=== PATIENT | female | born 1965 | race Caucasian/White ===

== ENCOUNTER → 2016-07-30 | Outpatient (CLI) | payer SELFPAY ==
--- NOTE | 2016-07-30 11:53 | CR ---
EXAMINATION: Pelvis and bilateral hips HISTORY: Pain COMPARISON: CT dated 04/21/2015 TECHNIQUE: AP pelvis and 2 views of the hips bilaterally FINDINGS: No acute osseous abnormality, dislocation, or fracture identified. Bone mineralization and joint spaces appear normal. Mild subchondral sclerosis within the acetabula. The SI joints are symm etric. Bone mineralization is normal. IMPRESSION: Mild degenerative changes within the hips bilaterally otherwise unremarkable pelvis and hips.
== END ==
LOC: MW.CHORTHO 07:36
PROVIDERS: ATTEND Physician Assistant
DX: M25.551 Pain in right hip (principal); M25.552 Pain in left hip
CPT/HCPCS: 73521; 73521-26

== ENCOUNTER 2019-12-28 06:51 | Day surgery (SDC) | payer MEDICAID ==
[2019-12-25 13:55] LABS: BLOOD UREA NITROGEN,BUN 13 mg/dL (7.0-18.0); CARBON DIOXIDE,CO2 24.5 mmol/L (21.0-32.0); CHLORIDE,CL 108 mmol/L (98-107); GLUCOSE RANDOM 99 mg/dL (74-106); POTASSIUM,K 3.6 mmol/L (3.5-5.1); SODIUM,NA 142 mmol/L (136-145)
[~2019-12-28 06:51] MED LIST: Sodium Chloride 0.9% 10 ML SDV IV PRN; Sodium Chloride 0.9% 10 ML Syringe FLUSH PRN; ceFAZolin 2 GM in Premix Bag 1 BAG IV ONE
[2019-12-28] MEDS ORDERED: Fluorescein 5 ML Vial ONE (07:13)
[2019-12-28] MEDS: Lactated Ringers 1,000 ML IV SCH ×2 (07:15→18:53)
[2019-12-28] MEDS ORDERED: Propofol 200 MG/20 ML SDV ONE (07:19)
[2019-12-28] MEDS ORDERED: fentaNYL 250 MCG/5 ML SDV ONE (07:19)
[2019-12-28] MEDS ORDERED: Midazolam 1 MG/ML 2 ML SDV ONE (07:19)
[2019-12-28] MEDS ORDERED: Glycopyrrolate 0.2 MG/ML SDV ONE (07:21)
[2019-12-28] MEDS ORDERED: Rocuronium Bromide 50 MG/5 ML Syringe ONE (07:21)
[2019-12-28] MEDS ORDERED: Lidocaine 2% 5 ML SDV ONE (07:21)
[2019-12-28] MEDS ORDERED: Ketorolac 30 MG/ML SDV ONE (07:21)
[2019-12-28] MEDS ORDERED: Ondansetron 4 MG/2 ML SDV ONE (07:21)
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
[2019-12-28] MEDS ORDERED: Acetaminophen 1,000 MG in Premix Bag 1 BAG IV PRN (07:38)
[2019-12-28] MEDS ORDERED: Ketorolac 30 MG/ML SDV IVPUSH ONE ×3 (07:38→11:00)
[2019-12-28] MEDS ORDERED: Sodium Chloride 0.9% 20 ML ONE (07:45)
[2019-12-28] MEDS ORDERED: ceFAZolin 1 GM Vial ONE (07:45)
[2019-12-28] MEDS ORDERED: Morphine 4 MG/ML Syringe IVPUSH PRN (09:07)
[2019-12-28] MEDS ORDERED: Ondansetron 4 MG/2 ML SDV IVPUSH PRN (09:07)
[2019-12-28] MEDS ORDERED: Promethazine 25 MG/ML SDV IM PRN (09:07)
[2019-12-28] MEDS ORDERED: Acetaminophen/oxyCODONE 325-5 MG Tab PO PRN ×2 (09:07)
--- NOTE | 2019-12-28 09:12 | PCM.OPNOTE ---
- General Post-Op/Procedure Note Date of Surgery/Procedure: 12/28/19 Operative Procedure(s): TVH,BSO,Solynx TVT and cystoscopy. Post-Op Diagnosis: Same Anesthesia Technique: General ET Tube Primary Surgeon: Adam Ferguson EBL in mLs: 100 Complications: None Condition: Good
[2019-12-28] MEDS ORDERED: HYDROmorphone 2 MG/ML Syringe IVPUSH PRN (09:15)
[2019-12-28] MEDS: fentaNYL 100 MCG/2 ML SDV IVPUSH PRN ×2 (09:18→09:22)
[2019-12-28] MEDS ORDERED: Midazolam 1 MG/ML 2 ML SDV IVPUSH ONE (09:22)
[2019-12-28] MEDS ORDERED: Furosemide 40 MG/4 ML VIAL ONE (09:27)
--- NOTE | 2019-12-28 09:39 | PCM.SN.2 ---
- Free Text/Narrative Note: Called to PACU to evaluate pt with severe pain. Pt has received Fentanyl 100mcg IV, Tylenol 1000mg IV, Toradol 30mg IV (intra-op), versed 2mg IV. Pt alternates between severe pain with tachypnea and asleep state with hypoventilation. Pt is exhibiting significant pain sedation mismatch. Pt will need continuous cent rally monitored SpO2 and EtCO2 monitoring post-operatively.
--- NOTE | 2019-12-28 10:14 | PCM.POSTAN ---
POST ANESTHESIA ASSESSMENT - MENTAL STATUS Mental Status: Alert, Oriented - VITAL SIGNS Vital Signs: Last Vital Signs Temp 37.0 C 12/28/19 09:11 Pulse 62 12/28/19 10:05 Resp 22 H 12/28/19 10:05 BP 129/71 12/28/19 10:05 Pulse Ox 100 12/28/19 10:05 - RESPIRATORY Respiratory Status: Respiratory Rate WNL, Airway Patent, O2 Saturation Stable - CARDIOVASCULAR CV Status: Pulse Rate WNL, Blood Pressure Stable - GASTROINTESTINAL GI Status: No Symptoms - PAIN Pain Score: 6 - POST OP HYDRATION Hydration Status: Adequate & Stable - OBSERVATIONS Free Text/Narrative:: No anesthesia problems
[2019-12-28] MEDS: HYDROmorphone 1 MG/ML Syringe IVPUSH PRN ×2 (15:18→19:28)
[2019-12-28] MEDS: Sodium Chloride 0.9% 2.5 ML Syringe FLUSH PRN ×2 (15:19→15:20)
--- NOTE | 2019-12-28 15:44 | OR ---
SURGEON: Adam Ferguson MD DATE OF PROCEDURE: 12/28/2019 PREOPERATIVE DIAGNOSES: Stress urinary incontinence, prolapsed uterus. POSTOPERATIVE DIAGNOSES: Stress urinary incontinence, prolapsed uterus. OPERATIONS PERFORMED: Total vaginal hysterectomy, bilateral vaginal salpingo-oophorectomy, tension- free Solyx TVT, and cystoscopy. 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 ANESTHESIA: General endotracheal intubation, Dr. Gould and Orlin Trevizo. ESTIMATED BLOOD LOSS: 100 mL. COMPLICATIONS: None. FINDINGS: Uterus is about 8-week size, +2 to +3 prolapse of the uterus. The posterior wall is reasonably supported and the anterior wall is reasonably supported with the abnormal urethrovesical angle causing stress urinary incontinence. PROCEDURE IN DETAIL: The patient was brought to the OR, properly identified. After adequate level of anesthesia, the patient was placed in lithotomy position, prepped and draped in sterile fashion as usual. A short weighted speculum placed in the vagina and straight catheter used to empty the bladder and then single-tooth tenaculum applied to the cervix. Using electrocautery, circular incision in the vaginal mucosa around the cervix done. The posterior cul-de-sac was entered posteriorly and the short weighted speculum replaced with extending long weighted speculum. The uterosacral ligament from both sides clamped with a curved Zeppelin, transected, and suture ligated with 2-0 Vicryl pop-off. The same thing was done with the cardinal ligament. Then, the cervicovesical space was incised with the Metzenbaum and the bladder retracted completely away from the operative field and the anterior cul-de-sac entered. The broad ligament was clamped with a curved Zeppelin from both sides, transected, and suture ligated with 2-0 Vicryl pop-off. The uterine vessel suture ligated at this step and then the round ligaments clamped with a curved Zeppelin from both sides, transected, and suture ligated with 2-0 Vicryl pop-off. Then, the uterus was delivered posteriorly and the superior pedicle was taken with 90-degree Zeppelin on both sides. The ovary was included with the specimen. The tubes were already removed and then the superior pedicle first tied with the Endoloop and then a free tie on both sides. Inspection of the operative field showed no oozing, no bleeding, and we proceeded to close the vaginal cuff with 2-0 Vicryl interrupted [id number] sutures. After that, assessing the vaginal wall, it was felt to be there was no need to have anterior or posterior repair because the vagina was reasonably supported, so we proceeded with the TVT and the mucosa of the vagina beneath the umbilicus inflated with copious amount of normal saline and dissected laterally in a tunneling fashion making room for the Solyx TVT. The Solyx TVT placed in place with due amount of tension to elevate the urethrovesical angle and then the anterior vaginal cuff incision was closed with 2-0 Vicryl interrupted sutures. While we were doing that, we asked the Anesthesia people to give the patient fluorescein and then cystoscopy was performed. The bladder was intact. Both ureteric orifice was seen with the dye coming from both of them. The patency of both ureters verified. Satisfied with these findings. Instrument and sponge count was correct. The patient tolerated the procedure well, went to recovery room in stable general condition. DORITA / MADELYN /[id number]
[2019-12-28] MEDS: Ketorolac 30 MG/ML SDV IVPUSH PRN ×2 (17:05→23:16)
[2019-12-29] MEDS: HYDROmorphone 1 MG/ML Syringe IVPUSH PRN (02:28)
[2019-12-29] MEDS: Sodium Chloride 0.9% 2.5 ML Syringe FLUSH PRN (02:36)
[2019-12-29] MEDS: Lactated Ringers 1,000 ML IV SCH (02:37)
[2019-12-29] MEDS: Ketorolac 30 MG/ML SDV IVPUSH PRN (05:46)
[2019-12-29 06:46] LABS: BLOOD UREA NITROGEN,BUN 8 mg/dL (7.0-18.0); CARBON DIOXIDE,CO2 30.6 mmol/L (21.0-32.0); CHLORIDE,CL 106 mmol/L (98-107); GLUCOSE RANDOM 111 mg/dL (74-106); POTASSIUM,K 3.8 mmol/L (3.5-5.1); SODIUM,NA 143 mmol/L (136-145)
[2019-12-29] MEDS ORDERED: FLU Vacc QS2020-21 36MOS UP/PF 60 MCG/0.5 ML Syringe IM ONE (09:00)
--- NOTE | 2019-12-29 10:09 | PCM48HPAN ---
Post Anesthesia Note - EVALUATION WITHIN 48HRS OF ANESTHETIC Vital Signs in Normal Range: Yes Patient Participated in Evaluation: Yes Respiratory Function Stable: Yes Airway Patent: Yes Cardiovascular Function Stable: Yes Hydration Status Stable: Yes Pain Control Satisfactory: Yes (Reports satisfactory pain control, pain 4/10) Nausea and Vomiting Control Satisfactory: Yes Mental Status Recovered: Yes Vital Signs: Last Vital Signs Temp 36.9 C 12/29/19 03:00 Pulse 60 12/29/19 03:00 Resp 14 12/29/19 03:00 BP 90/58 L 12/29/19 03:00 Pulse Ox 99 12/29/19 03:00 - COMMENTS/OBSERVATIONS Free Text/Narrative:: Has been ambulating well
[2019-12-29] MEDS ORDERED: Acetaminophen/HYDROcodone 325-5 MG Tab PO PRN (10:13)
[2019-12-29] MEDS ORDERED: SUMAtriptan 50 MG Tab ONE (10:41)
--- NOTE | 2019-12-29 10:42 | PCM.SURGPN ---
- General Info Date of Service: 12/29/19 POD#: 1 Functional Status: Reports: Pain Controlled - Review of Systems General: Reports: No Symptoms HEENT: Reports: No Symptoms Pulmonary: Reports: No Symptoms Cardiovascular: Reports: No Symptoms Gastrointestinal: Reports: No Symptoms Genitourinary: Reports: No Symptoms Musculoskeletal: Reports: No Symptoms Skin: Reports: No Symptoms Neurological: Reports: No Symptoms Psychiatric: Reports: No Symptoms - Patient Data Vitals - Most Recent: Last Vital Signs Temp 36.9 C 12/29/19 03:00 Pulse 60 12/29/19 03:00 Resp 14 12/29/19 03:00 BP 90/58 L 12/29/19 03:00 Pulse Ox 99 12/29/19 03:00 Weight - Most Recent: 60.781 kg I&O - Last 24 Hours: Intake & Output 12/28/19 12/29/19 12/29/19 22:59 06:59 14:59 Intake Total 360 2405 Output Total 800 2000 Balance -440 405 Lab Results Last 24 Hrs: Laboratory Results - last 24 hr 12/29/19 12/29/19 Range/Units 05:52 05:52 WBC 8.76 (4.0-11.0) K/uL RBC 3.34 L (4.30-5.90) M/uL Hgb 10.3 L (12.0-16.0) g/dL Hct 32.2 L (36.0-46.0) % MCV 96.4 (80.0-98.0) fL MCH 30.8 (27.0-32.0) pg MCHC 32.0 (31.0-37.0) g/dL RDW Std Deviation 52.2 (28.0-62.0) fl RDW Coeff of Segundo 15 (11.0-15.0) % Plt Count 187 (150-400) K/uL MPV 10.90 (7.40-12.00) fL Neut % (Auto) 57.0 (48.0-80.0) % Lymph % (Auto) 35.0 (16.0-40.0) % Elk % (Auto) 6.8 (0.0-15.0) % Eos % (Auto) 0.9 (0.0-7.0) % Baso % (Auto) 0.3 (0.0-1.5) % Neut # (Auto) 5.0 (1.4-5.7) K/uL Lymph # (Auto) 3.1 H (0.6-2.4) K/uL Elk # (Auto) 0.6 (0.0-0.8) K/uL Eos # (Auto) 0.1 (0.0-0.7) K/uL Baso # (Auto) 0.0 (0.0-0.1) K/uL Nucleated RBC % 0.0 /100WBC Nucleated RBCs # 0 K/uL Sodium 143 (136-145) mmol/L Potassium 3.8 (3.5-5.1) mmol/L Chloride 106 (98-107) mmol/L Carbon Dioxide 30.6 (21.0-32.0) mmol/L BUN 8 (7.0-18.0) mg/dL Creatinine 0.7 (0.6-1.0) mg/dL Est Cr Clr Drug Dosing 78.41 mL/min Estimated GFR (MDRD) > 60.0 ml/min Glucose 111 H (74-106) mg/dL Calcium 8.5 (8.5-10.1) mg/dL Med Orders - Current: Current Medications Hydrocodone Bitart/Acetaminophen (Goessel 325-5 Mg) 1 - 2 tab PO Q4H PRN PRN Reason: pain Last Admin: 12/29/19 10:33 Dose: 2 tab Documented by: Hydromorphone HCl (Dilaudid) 1 mg IVPUSH Q4H PRN PRN Reason: Pain Last Admin: 12/29/19 02:28 Dose: 1 mg Documented by: Lactated Ringer's (Ringers, Lactated) 1,000 mls @ 125 mls/hr IV ASDIRECTED VIV Last Admin: 12/29/19 02:37 Dose: 125 mls/hr Documented by: Ketorolac Tromethamine (Toradol) 30 mg IVPUSH Q6H PRN PRN Reason: Pain (severe 7-10) Stop: 01/02/20 09:07 Last Admin: 12/29/19 05:46 Dose: 30 mg Documented by: Ondansetron HCl (Zofran) 4 mg IVPUSH Q6H PRN PRN Reason: Nausea/Vomiting Oxycodone/Acetaminophen (Percocet 325-5 Mg) 1 tab PO Q4H PRN PRN Reason: Pain (moderate 4-6) Last Admin: 12/28/19 13:32 Dose: 1 tab Documented by: Oxycodone/Acetaminophen (Percocet 325-5 Mg) 2 tab PO Q4H PRN PRN Reason: Pain (moderate 4-6) Promethazine HCl (Phenergan) 25 mg IM Q6H PRN PRN Reason: Nausea/Vomiting Sodium Chloride (Saline Flush) 10 ml FLUSH ASDIRECTED PRN PRN Reason: Keep Vein Open Sodium Chloride (Saline Flush) 2.5 ml FLUSH ASDIRECTED PRN PRN Reason: Keep Vein Open Last Admin: 12/29/19 02:36 Dose: 2.5 ml Documented by: Sodium Chloride (Normal Saline) 10 ml IV ASDIRECTED PRN PRN Reason: IV Use Sumatriptan Succinate (Imitrex) 100 mg PO ONETIME ONE Stop: 12/29/19 10:46 Discontinued Medications Cefazolin Sodium (Ancef) Confirm Administered Dose 2 gm .ROUTE .STK-MED ONE Stop: 12/28/19 07:46 Fentanyl (Sublimaze) Confirm Administered Dose 250 mcg .ROUTE .STK-MED ONE Stop: 12/28/19 07:20 Fentanyl (Sublimaze) 50 - 100 mcg IVPUSH Q5M PRN PRN Reason: Pain (severe 7-10) Last Admin: 12/28/19 09:22 Dose: 50 mcg Documented by: Fluorescein Sodium (Ak-Fluor) Confirm Administered Dose 5 ml .ROUTE .STK-MED ONE Stop: 12/28/19 07:14 Furosemide (Lasix) Confirm Administered Dose 40 mg .ROUTE .STK-MED ONE Stop: 12/28/19 09:28 Glycopyrrolate (Robinul) Confirm Administered Dose 1 mg .ROUTE .STK-MED ONE Stop: 12/28/19 07:22 Hydromorphone HCl (Dilaudid) 1 - 2 mg IVPUSH ONETIME PRN PRN Reason: Pain Last Admin: 12/28/19 09:56 Dose: 1 mg Documented by: Cefazolin Sodium/Dextrose 2 gm (/ Premix) 50 mls @ 100 mls/hr IV ONETIME ONE Stop: 12/25/19 09:48 Acetaminophen 1,000 mg/ Premix 100 mls @ 400 mls/hr IV Q6H PRN PRN Reason: Pain Last Admin: 12/28/19 09:19 Dose: 400 mls/hr Documented by: Sodium Chloride (Normal Saline) Confirm Administered Dose 20 mls @ as directed .ROUTE .STK-MED ONE Stop: 12/28/19 07:46 Influenza Virus Vaccine (Pharmacy To Dose - Influenza Vaccine) 1 each IM ONETIME ONE Stop: 12/28/19 19:00 Influenza Virus Vaccine (Afluria Quad 2019- (3yr Up)) 60 mcg IM .ONCE ONE Stop: 12/29/19 09:01 Ketorolac Tromethamine (Toradol) Confirm Administered Dose 30 mg .ROUTE .STK-MED ONE Stop: 12/28/19 07:22 Ketorolac Tromethamine (Toradol) 30 mg IVPUSH Q6H ONE Stop: 12/28/19 07:39 Last Admin: 12/28/19 11:41 Dose: Not Given Documented by: Ketorolac Tromethamine (Toradol) 30 mg IVPUSH ONETIME ONE Stop: 12/28/19 09:08 Last Admin: 12/28/19 10:32 Dose: 30 mg Documented by: Ketorolac Tromethamine (Toradol) 30 mg IVPUSH ONETIME ONE Stop: 12/28/19 11:01 Last Admin: 12/28/19 11:41 Dose: Not Given Documented by: Lidocaine (Xylocaine-Mpf 2%) Confirm Administered Dose 5 ml .ROUTE .STK-MED ONE Stop: 12/28/19 07:22 Midazolam HCl (Versed 1 Mg/Ml) Confirm Administered Dose 2 mg .ROUTE .STK-MED ONE Stop: 12/28/19 07:20 Midazolam HCl (Versed 1 Mg/Ml) 2 mg IVPUSH ONETIME ONE Stop: 12/28/19 09:23 Last Admin: 12/28/19 09:28 Dose: 2 mg Documented by: Morphine Sulfate (Morphine) 4 mg IVPUSH Q2H PRN PRN Reason: Pain (severe 7-10) Ondansetron HCl (Zofran) Confirm Administered Dose 4 mg .ROUTE .STK-MED ONE Stop: 12/28/19 07:22 Propofol (Diprivan 20 Ml) Confirm Administered Dose 200 mg .ROUTE .STK-MED ONE Stop: 12/28/19 07:20 Rocuronium [place] (Rocuronium [place]) Confirm Administered Dose 50 mg .ROUTE .STK-MED ONE Stop: 12/28/19 07:22 - Exam Wound/Incisions: Healing Well General: Alert, Oriented HEENT: Pupils Equal Neck: Supple Lungs: Clear to Auscultation, Normal Respiratory Effort Cardiovascular: Regular Rate, Regular Rhythm GI/Abdominal Exam: Normal Bowel Sounds, Soft, Non-Tender, No Organomegaly, No Distention, No Abnormal Bruit, No Mass, Pelvis Stable Extremities: Normal Inspection, Normal Range of Motion, Non-Tender, No Pedal Edema, Normal Capillary Refill Skin: Warm, Dry, Intact Neurological: No New Focal Deficit Psy/Mental Status: Alert, Normal Affect, Normal Mood Sepsis Event Note - Evaluation Sepsis Screening Result: No Definite Risk - Focused Exam Vital Signs: Vital Signs Temp Pulse Resp BP Pulse Ox 12/29/19 03:00 36.9 C 60 14 90/58 L 99 12/28/19 23:21 37.2 C 60 16 95/62 100 - Problem List Review Problem List Initiated/Reviewed/Updated: Yes - My Orders Last 24 Hours: Active Orders 24 hr Category Date Time Status Influenza Vaccine Charge [RC] .DISCHARGE Care 12/28/19 19:00 Active Urinary Catheter Assessment [RC] ASDIRECTED Care 12/29/19 10:28 Active Urinary Catheter Insertion [Insert Urinary Catheter] [ Care 12/29/19 10:30 Ordered OM.PC] Q24H Regular Diet [DIET] Diet 12/28/19 Lunch Active Acetaminophen/HYDROcodone [Goessel 325-5 MG] Med 12/29/19 10:13 Active 1 - 2 tab PO Q4H PRN HYDROmorphone [Dilaudid] Med 12/28/19 15:11 Active 1 mg IVPUSH Q4H PRN SUMAtriptan [Imitrex] Med 12/29/19 10:45 Once 100 mg PO ONETIME ONE Medication Orders Hydrocodone Bitart/Acetaminophen (Goessel 325-5 Mg) 1 - 2 tab PO Q4H PRN PRN Reason: pain Last Admin: 12/29/19 10:33 Dose: 2 tab Documented by: LACHO Hydromorphone HCl (Dilaudid) 1 mg IVPUSH Q4H PRN PRN Reason: Pain Last Admin: 12/29/19 02:28 Dose: 1 mg Documented by: Admin: 12/28/19 19:28 Dose: 1 mg Documented by: Admin: 12/28/19 15:18 Dose: 1 mg Documented by: LAWRENCE Lactated Ringer's (Ringers, Lactated) 1,000 mls @ 125 mls/hr IV ASDIRECTED VIV Last Admin: 12/29/19 02:37 Dose: 125 mls/hr Documented by: Infusion: 12/29/19 02:37 Dose: 125 mls/hr Documented by: Admin: 12/28/19 18:53 Dose: 125 mls/hr Documented by: Infusion: 12/28/19 15:15 Dose: 125 mls/hr Documented by: Admin: 12/28/19 07:15 Dose: 125 mls/hr Documented by: KG Ketorolac Tromethamine (Toradol) 30 mg IVPUSH Q6H PRN PRN Reason: Pain (severe 7-10) Stop: 01/02/20 09:07 Last Admin: 12/29/19 05:46 Dose: 30 mg Documented by: Admin: 12/28/19 23:16 Dose: 30 mg Documented by: Admin: 12/28/19 17:05 Dose: 30 mg Documented by: LACHO Ondansetron HCl (Zofran) 4 mg IVPUSH Q6H PRN PRN Reason: Nausea/Vomiting Oxycodone/Acetaminophen (Percocet 325-5 Mg) 1 tab PO Q4H PRN PRN Reason: Pain (moderate 4-6) Last Admin: 12/28/19 13:32 Dose: 1 tab Documented by: LACHO Oxycodone/Acetaminophen (Percocet 325-5 Mg) 2 tab PO Q4H PRN PRN Reason: Pain (moderate 4-6) Promethazine HCl (Phenergan) 25 mg IM Q6H PRN PRN Reason: Nausea/Vomiting Sodium Chloride (Saline Flush) 10 ml FLUSH ASDIRECTED PRN PRN Reason: Keep Vein Open Sodium Chloride (Saline Flush) 2.5 ml FLUSH ASDIRECTED PRN PRN Reason: Keep Vein Open Last Admin: 10/16/20 02:36 Dose: 2.5 ml Documented by: Admin: 12/28/19 15:20 Dose: 2.5 ml Documented by: Admin: 12/28/19 15:19 Dose: 2.5 ml Documented by: LAWRENCE Sodium Chloride (Normal Saline) 10 ml IV ASDIRECTED PRN PRN Reason: IV Use Sumatriptan Succinate (Imitrex) 100 mg PO ONETIME ONE Stop: 12/29/19 10:46 - Assessment Assessment (Free Text/Narrative):: Status post total vaginal hysterectomy TVT postoperative day #1 the patient is doing well she have an issue with voiding I am claudio sent her home with the Godinez catheter to be removed in the office - Plan Plan (Free Text/Narrative):: Planning to center on the postvasectomy instruction is given prescription for Narco 5/325 for postoperative pain is. Given to the patient we are sending her home with a Godinez catheter because the patient have an issue with voiding and we gave her instruction how to take care of her Godinez catheter. There is no restriction on her diet the patient have a follow-up appointment in the office in one week and at that time we will DC the Godinez catheter
[2019-12-29] MEDS ORDERED: SUMAtriptan 50 MG Tab PO ONE (10:45)
[2019-12-29 11:10] VITALS: BP 96/56; PULSE 86
[2019-12-29] MEDS ORDERED: FLU VACC QS2020-21(6MOS UP)/PF 60 MCG/0.5 ML SYRINGE IM ONE (11:10)
== END 2019-12-29 11:25 | disposition home or self-care (01) ==
LOC: MW.SDS 06:51 → MW.MS 10:22 → MW.SDS 12-29 11:25
PROVIDERS: ATTEND Obstetrics & Gynecology
DX: D21.9 Benign neoplasm of connective and other soft tissue, unspecified (principal); N39.3 Stress incontinence (female) (male); N81.4 Uterovaginal prolapse, unspecified; J45.909 Unspecified asthma, uncomplicated; Z88.0 Allergy status to penicillin; Z88.5 Allergy status to narcotic agent; Z79.899 Other long term (current) drug therapy; Z98.890 Other specified postprocedural states; Z88.8 Allergy status to other drugs, medicaments and biological substances; F32.9 Major depressive disorder, single episode, unspecified; Z90.49 Acquired absence of other specified parts of digestive tract
CPT/HCPCS: 36415; 51702; 57288; 58262; 80048; 84703; 85025; 85027; 86850; 86900; 86901; 87635; 88309; 90471; 90686; A9270; J0131; J0690; J1170; J1885; J1940; J2001; J2250; J2704; J3010; J3490; J7120; G0008; J2405; U0002

== ENCOUNTER 2019-12-30 18:04 | Observation (INO) | payer MEDICAID, OTHER ==
[2019-12-30] MEDS ORDERED: Sodium Chloride 0.9% 1,000 ML IV ONE ×2 (19:15→23:13)
[2019-12-30] MEDS ORDERED: Acetaminophen/HYDROcodone 325-5 MG Tab PO ONE (19:35)
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
[2019-12-30 20:10] LABS: BLOOD UREA NITROGEN,BUN 8 mg/dL (7.0-18.0); CARBON DIOXIDE,CO2 27.7 mmol/L (21.0-32.0); CHLORIDE,CL 103 mmol/L (98-107); GLUCOSE RANDOM 127 mg/dL (74-106); POTASSIUM,K 3.5 mmol/L (3.5-5.1); SODIUM,NA 138 mmol/L (136-145)
[2019-12-30] MEDS ORDERED: Iopamidol 755 Mg/ML 100 ML Bottle IVPUSH STA (20:46)
--- NOTE | 2019-12-30 21:22 | CT ---
Indication: Recent hysterectomy bladder taping pain Technique: Contrast-enhanced CT abdomen and pelvis 80 mL Isovue 370 Comparison: CT studies in 2016 Findings: Heart size is normal lung bases are clear. Cholecystectomy intra and extrahepatic biliary dilatation. Pancreas adrenal glands are unremarkable spleen is unremarkable normal caliber abdominal aorta symmetric enhancement both kidneys no hydronephrosis Normal appendix. Hysterectomy. Godinez in decompressed urinary bladder. There is mild soft tissue stranding in the pelvis. Small amount of fluid in the pelvis. No abscess or organized fluid collection seen. Diverticulosis. Bowel is unremarkable. No obstruction. No suspicious bony lesions. Impression: 1. No acute findings in abdomen or pelvis. 2. Hysterectomy. Urinary bladder decompressed with Godinez. Mild inflammatory change in the pelvis and fluid in the pelvis likely post surgical. No abscess or organized fluid collections. Please note that all CT scans at this facility use dose modulation, iterative reconstruction, and/or weight-based dosing when appropriate to reduce radiation dose to as low as reasonably achievable. Dictated by Zee Gonzalez MD @ Dec 30 2019 9:09PM Signed by Dr. Zee Gonzalez @ Dec 30 2019 9:20PM
[2019-12-30 21:33] LABS: ACETAMINOPHEN < 2.0 ug/mL
[2019-12-30] MEDS ORDERED: Ondansetron 4 MG/2 ML SDV IVPUSH PRN (23:39)
[2019-12-30] MEDS ORDERED: Albuterol/Ipratropium 3.0-0.5 MG/3 ML Neb Soln NEB PRN (23:39)
[2019-12-31] MEDS ORDERED: Acetaminophen/HYDROcodone 108-2.5 MG/5 ML Soln 15 ML UD Cup PO PRN (00:08)
[2019-12-31] MEDS: Acetaminophen/HYDROcodone 108-2.5 MG/5 ML Soln 15 ML UD Cup PO PRN ×2 (00:33→04:31)
[2019-12-31] MEDS: Lactated Ringers 1,000 ML IV SCH ×3 (01:14→16:41)
[2019-12-31] MEDS: Bisacodyl 5 MG Tab PO PRN ×2 (01:20→21:24)
--- NOTE | 2019-12-31 01:20 | PCM.SN.2 ---
- Free Text/Narrative Note: Patient was signed out to me by THANH Anderson pending CT abdomen pelvis and further evaluation. HPI: Is a 54-year-old woman who was signed out to me pending further work-up and CT abdomen pelvis. Per the patient she had a vaginal hysterectomy and bladder sling done by Dr. Ferguson approximately 2 days ago. She states that she comes to the emergency department today because she is having sharp pain near her suprapubic area. She denies any dysuria or hematuria. She denies any wound changes. She denies any fever or chills. She states that she took [place] at home states the pain is still there. She denies any other symptoms. Labs are reviewed at signout which did reveal a normocytic anemia with a hemoglobin of 11.3 and hematocrit of 35.6 otherwise unremarkable. CMP reveals a transaminitis with an AST of 1052 and an ALT of 1123 with an elevated alkaline phosphatase of 195 otherwise unremarkable. Urinalysis revealed microscopic hematuria. Discussion with THANH we did obtain Tylenol levels in addition coagulation studies, lactate given the transaminitis and a recent use of [place]. I did have a discussion with the patient and she did not take more than prescribed. She does have the bottle and presents with her which does not reveal any missing tablets. She states that she did take 1 Tylenol night before last but has not taken any additional Tylenol since that time. We also sent a hepatitis panel. Coags are within normal limits, lactic acid was normal. Serum Tylenol was negative. After labs I did discuss with patient regarding admission. She was amenable to this plan. I did contact Dr. Garcia who accepted the admission. The patient will be admitted for observation. At the time of my reevaluation the patient had controlled pain at this time. I did order her her scheduled home dose of pain medication. DISPOSITION: Patient was admitted to medical/surgical floor in stable condition CONDITION: Fair PROCEDURES: None FINAL IMPRESSION(S)/DIAGNOSES: 1. Acute transaminitis, unknown etiology Neville Boucher M.D.
[2019-12-31] MEDS: Ketorolac 30 MG/ML SDV IVPUSH PRN ×4 (01:32→21:24)
[2019-12-31 05:53] LABS: BLOOD UREA NITROGEN,BUN 5 mg/dL (7.0-18.0); CARBON DIOXIDE,CO2 27.2 mmol/L (21.0-32.0); CHLORIDE,CL 107 mmol/L (98-107); GLUCOSE RANDOM 101 mg/dL (74-106); POTASSIUM,K 3.5 mmol/L (3.5-5.1); SODIUM,NA 142 mmol/L (136-145)
[2019-12-31] MEDS: Pantoprazole 40 MG in Sodium Chloride 0.9% 10 ML IV SCH (08:43)
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
[2019-12-31] MEDS ORDERED: SUMAtriptan 50 MG Tab PO PRN ×2 (12:34→12:55)
--- NOTE | 2019-12-31 14:15 | US ---
INDICATION : TRANSAMINITIS. CT yesterday was negative for acute disease TECHNIQUE: Abdominal limited ultrasound Comparison : Yesterday`s CT. FINDINGS: Pancreas where seen is normal. Abdominal aorta is normal in caliber. The intrahepatic biliary dilatation seen on yesterday`s CT is less evident by ultrasound. The common bile duct dilatation on yesterday`s CT approaches borderline moderate and is not appreciated today`s ultrasound images. Common hepatic duct measures 4.4 mm which is normal. Right kidney measures 10.6 cm is negative for hydronephrosis. Gallbladder surgically absent. No focal mass in the liver. The abdominal inferior vein cava proximally is moderate in diameter and is patent with flow in the appropriate direction. Remainder negative. IMPRESSION: 1. Cholecystectomy. The borderline moderate intrahepatic and extrahepatic biliary dilatation seen on yesterday`s CT is less evident by ultrasound it likely related to differences in technique. 2. Aside from the intrahepatic biliary dilatation, the liver was otherwise normal without mass. 3. No other significant abnormalities in the abdomen. Dictated by Fletcher Lozada MD @ Dec 31 2019 2:09PM Signed by Dr. Fletcher Lozada @ Dec 31 2019 2:14PM
[2020-01-01] MEDS: Lactated Ringers 1,000 ML IV SCH ×4 (00:05→23:36)
[2020-01-01] MEDS ORDERED: traMADol 50 MG Tab PO ONE (01:03)
[2020-01-01] MEDS: Ketorolac 30 MG/ML SDV IVPUSH PRN ×3 (04:06→23:32)
[2020-01-01 05:52] LABS: BLOOD UREA NITROGEN,BUN 5 mg/dL (7.0-18.0); CARBON DIOXIDE,CO2 29.3 mmol/L (21.0-32.0); CHLORIDE,CL 107 mmol/L (98-107); GLUCOSE RANDOM 109 mg/dL (74-106); POTASSIUM,K 4.2 mmol/L (3.5-5.1); SODIUM,NA 143 mmol/L (136-145)
[2020-01-01 08:31] LABS: LIPASE 94 U/L (73-393)
[2020-01-01] MEDS: Pantoprazole 40 MG in Sodium Chloride 0.9% 10 ML IV SCH (08:54)
--- NOTE | 2020-01-01 09:04 | PCM.PN ---
- General Info Date of Service: 01/01/20 Admission Dx/Problem (Free Text): Admission Diagnosis/Problem Admission Diagnosis/Problem Transaminitis, post operative pain Subjective Update: Reports abdominal pain, all over sharp in nature . No chest pain or SOB. No fevers or chills. Having intermittent flushing/hot flashes. Feels nauseate and having some pain with eating. Passing flatus, no BM since before surgery. Ambulating well in the hallways. Functional Status: Reports: Ambulating. Denies: Tolerating Diet - Review of Systems General: Reports: Fatigue. Denies: Malaise HEENT: Reports: Headaches. Denies: Glasses, Visual Changes Pulmonary: Reports: No Symptoms. Denies: Shortness of Breath, Cough, Sputum Cardiovascular: Reports: No Symptoms. Denies: Chest Pain Gastrointestinal: Reports: Abdominal Pain, Constipation, Flatus, Nausea. Denies: Vomiting Genitourinary: Reports: Other (spasms) Musculoskeletal: Reports: No Symptoms Skin: Reports: No Symptoms Neurological: Reports: No Symptoms Psychiatric: Reports: No Symptoms - Patient Data Vitals - Most Recent: Last Vital Signs Temp 98.4 F 01/01/20 07:48 Pulse 68 01/01/20 07:48 Resp 18 01/01/20 07:48 BP 106/74 01/01/20 07:48 Pulse Ox 98 01/01/20 07:48 Weight - Most Recent: 61.643 kg I&O - Last 24 Hours: Intake & Output 12/31/19 01/01/20 01/01/20 22:59 06:59 14:59 Intake Total 2505 2366 Output Total 1850 3250 Balance 655 -884 Lab Results Last 24 Hours: Laboratory Results - last 24 hr 12/31/19 12/31/19 12/31/19 Range/Units 04:45 09: 17:54 WBC (4.0-11.0) K/uL RBC (4.30-5.90) M/uL Hgb (12.0-16.0) g/dL Hct (36.0-46.0) % MCV (80.0-98.0) fL MCH (27.0-32.0) pg MCHC (31.0-37.0) g/dL RDW Std Deviation (28.0-62.0) fl RDW Coeff of Seg[place] (11.0-15.0) % Plt Count (150-400) K/uL MPV (7.40-12.00) fL Neut % (Auto) (48.0-80.0) % Lymph % (Auto) (16.0-40.0) % [place] % (Auto) (0.0-15.0) % Eos % (Auto) (0.0-7.0) % Baso % (Auto) (0.0-1.5) % Neut # (Auto) (1.4-5.7) K/uL Lymph # (Auto) (0.6-2.4) K/uL [place] # (Auto) (0.0-0.8) K/uL Eos # (Auto) (0.0-0.7) K/uL Baso # (Auto) (0.0-0.1) K/uL Nucleated RBC % /100WBC Nucleated RBCs # K/uL Sodium (136-145) mmol/L Potassium (3.5-5.1) mmol/L Chloride (98-107) mmol/L Carbon Dioxide (21.0-32.0) mmol/L BUN (7.0-18.0) mg/dL Creatinine (0.6-1.0) mg/dL Est Cr Clr Drug Dosing mL/min Estimated GFR (MDRD) ml/min Glucose (74-106) mg/dL POC Glucose 108 188 H (60-110) mg/dL Calcium (8.5-10.1) mg/dL Phosphorus (2.6-4.7) mg/dL Magnesium (1.8-2.4) mg/dL Total Bilirubin (0.2-1.0) mg/dL AST (15-37) IU/L ALT (14-63) IU/L Alkaline Phosphatase (46-116) U/L Total Protein (6.4-8.2) g/dL Albumin (3.4-5.0) g/dL Globulin (2.6-4.0) g/dL Albumin/Globulin Ratio (0.9-1.6) Amylase (25-115) U/L Lipase (73-393) U/L Acetaminophen 4.5 ug/mL 01/01/20 01/01/20 01/01/20 Range/Units 05:20 05:20 05:20 WBC 5.42 (4.0-11.0) K/uL RBC 3.30 L (4.30-5.90) M/uL Hgb 10.0 L (12.0-16.0) g/dL Hct 31.9 L (36.0-46.0) % MCV 96.7 (80.0-98.0) fL MCH 30.3 (27.0-32.0) pg MCHC 31.3 (31.0-37.0) g/dL RDW Std Deviation 51.6 (28.0-62.0) fl RDW Coeff of Segundo 14 (11.0-15.0) % Plt Count 178 (150-400) K/uL MPV 10.50 (7.40-12.00) fL Neut % (Auto) 46.3 L (48.0-80.0) % Lymph % (Auto) 37.6 (16.0-40.0) % [place] % (Auto) 5.4 (0.0-15.0) % Eos % (Auto) 10.1 H (0.0-7.0) % Baso % (Auto) 0.6 (0.0-1.5) % Neut # (Auto) 2.5 (1.4-5.7) K/uL Lymph # (Auto) 2.0 (0.6-2.4) K/uL [place] # (Auto) 0.3 (0.0-0.8) K/uL Eos # (Auto) 0.6 (0.0-0.7) K/uL Baso # (Auto) 0.0 (0.0-0.1) K/uL Nucleated RBC % 0.0 /100WBC Nucleated RBCs # 0 K/uL Sodium 143 (136-145) mmol/L Potassium 4.2 (3.5-5.1) mmol/L Chloride 107 (98-107) mmol/L Carbon Dioxide 29.3 (21.0-32.0) mmol/L BUN 5 L (7.0-18.0) mg/dL Creatinine 0.6 (0.6-1.0) mg/dL Est Cr Clr Drug Dosing 91.48 mL/min Estimated GFR (MDRD) > 60.0 ml/min Glucose 109 H (74-106) mg/dL POC Glucose (60-110) mg/dL Calcium 8.9 (8.5-10.1) mg/dL Phosphorus 3.9 (2.6-4.7) mg/dL Magnesium 1.8 (1.8-2.4) mg/dL Total Bilirubin 0.5 (0.2-1.0) mg/dL AST 188 H (15-37) IU/L ALT 539 H (14-63) IU/L Alkaline Phosphatase 146 H (46-116) U/L Total Protein 5.4 L (6.4-8.2) g/dL Albumin 3.0 L (3.4-5.0) g/dL Globulin 2.4 L (2.6-4.0) g/dL Albumin/Globulin Ratio 1.3 (0.9-1.6) Amylase 38 (25-115) U/L Lipase 94 (73-393) U/L Acetaminophen ug/mL 01/01/20 Range/Units 06:42 WBC (4.0-11.0) K/uL RBC (4.30-5.90) M/uL Hgb (12.0-16.0) g/dL Hct (36.0-46.0) % MCV (80.0-98.0) fL MCH (27.0-32.0) pg MCHC (31.0-37.0) g/dL RDW Std Deviation (28.0-62.0) fl RDW Coeff of Segundo (11.0-15.0) % Plt Count (150-400) K/uL MPV (7.40-12.00) fL Neut % (Auto) (48.0-80.0) % Lymph % (Auto) (16.0-40.0) % [place] % (Auto) (0.0-15.0) % Eos % (Auto) (0.0-7.0) % Baso % (Auto) (0.0-1.5) % Neut # (Auto) (1.4-5.7) K/uL Lymph # (Auto) (0.6-2.4) K/uL [place] # (Auto) (0.0-0.8) K/uL Eos # (Auto) (0.0-0.7) K/uL Baso # (Auto) (0.0-0.1) K/uL Nucleated RBC % /100WBC Nucleated RBCs # K/uL Sodium (136-145) mmol/L Potassium (3.5-5.1) mmol/L Chloride (98-107) mmol/L Carbon Dioxide (21.0-32.0) mmol/L BUN (7.0-18.0) mg/dL Creatinine (0.6-1.0) mg/dL Est Cr Clr Drug Dosing mL/min Estimated GFR (MDRD) ml/min Glucose (74-106) mg/dL POC Glucose 97 (60-110) mg/dL Calcium (8.5-10.1) mg/dL Phosphorus (2.6-4.7) mg/dL Magnesium (1.8-2.4) mg/dL Total Bilirubin (0.2-1.0) mg/dL AST (15-37) IU/L ALT (14-63) IU/L Alkaline Phosphatase (46-116) U/L Total Protein (6.4-8.2) g/dL Albumin (3.4-5.0) g/dL Globulin (2.6-4.0) g/dL Albumin/Globulin Ratio (0.9-1.6) Amylase (25-115) U/L Lipase (73-393) U/L Acetaminophen ug/mL Med Orders - Current: Current Medications Albuterol/Ipratropium (Duoneb 3.0-0.5 Mg/3 Ml) 3 ml NEB Q4HRRT PRN PRN Reason: Shortness Of Breath/wheezing Bisacodyl (Dulcolax) 5 mg PO BID PRN PRN Reason: Constipation Last Admin: 12/31/19 21:24 Dose: 5 mg Documented by: Lactated Ringer's (Ringers, Lactated) 1,000 mls @ 125 mls/hr IV ASDIRECTED [facility] Last Admin: 01/01/20 07:45 Dose: 125 mls/hr Documented by: Pantoprazole Sodium 40 mg/ (Sodium Chloride) 10 mls @ 300 mls/hr IV DAILY [facility] Last Admin: 01/01/20 08:54 Dose: 300 mls/hr Documented by: Ketorolac Tromethamine (Toradol) 30 mg IVPUSH Q6H PRN PRN Reason: Pain Stop: 01/04/20 23:50 Last Admin: 01/01/20 04:06 Dose: 30 mg Documented by: Ondansetron HCl (Zofran) 4 mg IVPUSH Q4H PRN PRN Reason: Nausea/Vomiting Sumatriptan Succinate (Imitrex) 50 mg PO Q2H PRN PRN Reason: Headache/Pain Last Admin: 12/31/19 13:06 Dose: 50 mg Documented by: Discontinued Medications Hydrocodone Bitart/Acetaminophen ([place] 325-5 Mg) 1 tab PO ONETIME ONE Stop: 12/30/19 19:36 Last Admin: 12/30/19 19:39 Dose: 1 tab Documented by: Hydrocodone Bitart/Acetaminophen (Acetaminophen/Hydrocodone 108-2.5 Mg/5 Ml) 15 ml PO Q4H PRN PRN Reason: Pain Hydrocodone Bitart/Acetaminophen (Acetaminophen/Hydrocodone 108-2.5 Mg/5 Ml) 15 ml PO Q4H PRN PRN Reason: Pain Last Admin: 12/31/19 04:31 Dose: 15 ml Documented by: Sodium Chloride (Normal Saline) 1,000 mls @ 999 mls/hr IV STAT ONE Stop: 12/30/19 20:15 Last Admin: 12/30/19 19:30 Dose: 999 mls/hr Documented by: Sodium Chloride (Normal Saline) 1,000 mls @ 999 mls/hr IV .Bolus ONE Stop: 12/31/19 00:13 Last Admin: 12/30/19 23:20 Dose: 999 mls/hr Documented by: Iopamidol (Isovue-370 (76%)) 80 ml IVPUSH ONETIME STA Stop: 12/30/19 20:47 Last Admin: 12/30/19 20:47 Dose: 80 ml Documented by: Sumatriptan Succinate (Imitrex) 65 mg PO ASDIRECTED PRN PRN Reason: Headache Tramadol HCl (Ultram) 50 mg PO ONETIME ONE Stop: 01/01/20 01:04 Last Admin: 01/01/20 01:25 Dose: 50 mg Documented by: - Exam General: Alert, Oriented, Cooperative Lungs: Clear to Auscultation Cardiovascular: Regular Rate, Regular Rhythm GI/Abdominal Exam: Normal Bowel Sounds, Soft, Non-Tender Back Exam: Normal Inspection, Full Range of Motion Extremities: Normal Inspection, Normal Range of Motion, Non-Tender Neurological: No New Focal Deficit Psy/Mental Status: Alert, Normal Affect, Normal Mood, Anxious Sepsis Event Note - Evaluation Sepsis Screening Result: No Definite Risk - Focused Exam Vital Signs: Vital Signs Temp Pulse Resp BP Pulse Ox 01/01/20 07:48 98.4 F 68 18 106/74 98 01/01/20 03:47 97.4 F 69 19 120/75 97 01/01/20 00:01 98.1 F 76 20 109/68 96 - Problem List & Annotations (1) Transaminitis SNOMED Code(s): 295430762, 924837186 Code(s): R74.01 - ELEVATION OF LEVELS OF LIVER TRANSAMINASE LEVELS Status: Acute Current Visit: Yes (2) Abdominal pain SNOMED Code(s): 48472531 Code(s): R10.9 - UNSPECIFIED ABDOMINAL PAIN Status: Acute Current Visit: Yes Qualifiers: Abdominal location: unspecified location Qualified Code(s): R10.9 - Unspecified abdominal pain (3) H/O vaginal hysterectomy SNOMED Code(s): 700074286 Code(s): Z90.710 - ACQUIRED ABSENCE OF BOTH CERVIX AND UTERUS Status: Acute Current Visit: Yes - Problem List Review Problem List Initiated/Reviewed/Updated: Yes - Plan Plan:: 54 y/o F admitted for post operative abdominal pain, constipation and transaminitis 1. Abdominal pain, suspect likely post-operative pain - CT and US stable. No acute findings - Will remove mccoy today, try B& O suppository for bladder spasms - Try Oxycodone for pain PRN - Keep Toradol IV PRN - Anxiety level elevated, will given 0.5 mg Ativan x1 and monitor - Advance diet to soft and monitor how she tolerates 2. Transaminitis - Continues to improve - US negative - Hepatitis panel pending - Continue to avoid hepatotoxic medications 3. Constipation - Encouraged ambulation - Stool softeners, consider dulcolax suppository if no stools VTE prophylaxis: SCDs and ambulation Dispo: 1-2 days
[2020-01-01] MEDS ORDERED: Belladonna Alkaloids/Opium 16.2-30 MG Supp RECTAL ONE (10:19)
[2020-01-01] MEDS ORDERED: LORazepam 0.5 MG Tab PO ONE (10:28)
[2020-01-01] MEDS: oxyCODONE 5 MG Tab PO PRN (16:57)
[2020-01-01] MEDS ORDERED: Belladonna Alkaloids/Opium 16.2-30 MG Supp RECTAL PRN (16:57)
[2020-01-02 06:34] LABS: BLOOD UREA NITROGEN,BUN 11 mg/dL (7.0-18.0); CARBON DIOXIDE,CO2 29.9 mmol/L (21.0-32.0); CHLORIDE,CL 106 mmol/L (98-107); GLUCOSE RANDOM 100 mg/dL (74-106); POTASSIUM,K 3.8 mmol/L (3.5-5.1); SODIUM,NA 143 mmol/L (136-145)
[2020-01-02] MEDS: oxyCODONE 5 MG Tab PO PRN (07:52)
[2020-01-02] MEDS: Lactated Ringers 1,000 ML IV SCH (07:53)
[2020-01-02] MEDS: Pantoprazole 40 MG in Sodium Chloride 0.9% 10 ML IV SCH (08:40)
[2020-01-02] MEDS ORDERED: Bisacodyl 10 MG Supp RECTAL ONE (09:01)
--- NOTE | 2020-01-02 10:17 | PCM.DCSUM1 ---
Discharge Summary - Hospital Course Brief History: Patient is a 54-year-old female with h/o recent vaginal hysterectomy and bladder sling performed by Dr. Ferguson on 12/28/2019 due to a prolapsed uterus presents to the emergency room with complaints of abdominal pain, nausea, vomiting and constipation. She describes the pain as sharp stabbing pain in her lower abdomen and just above her umbilicus. She is also concerned that she has not had a bowel movement since before surgery. She states she had hysterectomy due to the uterus pressing on her bladder and she was unable to void. After surgery she did go home with a Godinez catheter as she was unable to void on her own. Patient is upset stating that her pain wasn't managed on timely fashion post op. She took Beatty, took 1 tablet a few hours prior to arrival but has helped much. Patient denies any fever, chills, headache, change in vision, syncope or near syncope. Denies any chest pain, back pain, shortness of breath or cough. Has not noted any blood in urine or stool. Patient has been eating and drinking appropriately. Labs revealed hemoglobin of 11.3 and hematocrit of 35.6 otherwise unremarkable. CMP reveals a transaminitis with an AST of 1052 and an ALT of 1123 with an elevated alkaline phosphatase of 195 otherwise unremarkable. Urinalysis revealed microscopic hematuria. Coags were within normal limits, lactic acid was normal. Serum Tylenol was negative as well. She denied overdosing on the meds, denied alcohol binging. CT shows no acute findings in the abdomen or pelvis. Hysterectomy. Urinary bladder decompressed with Godinez. Mild inflammatory change in the pelvis and fluid in the pelvis likely postsurgical. No abscess or organized fluid collections. When Dr Kline consult was bought up, patient declined and didnt want him to be called. Given her abdominal pain and acute liver dysfunction she is being admitted for further care - Discharge Data Discharge Date: 01/02/20 Discharge Disposition: Home, Self-Care 01 Condition: Good - Referral to Home Health Primary Care Physician: PCP None - Discharge Diagnosis/Problem(s) (1) Transaminitis SNOMED Code(s): 139341097, 330295884 ICD Code: R74.01 - ELEVATION OF LEVELS OF LIVER TRANSAMINASE LEVELS Status: Acute Current Visit: Yes (2) Abdominal pain SNOMED Code(s): 44425140 ICD Code: R10.9 - UNSPECIFIED ABDOMINAL PAIN Status: Acute Current Visit: Yes Qualifiers: Abdominal location: unspecified location Qualified Code(s): R10.9 - U nspecified abdominal pain (3) H/O vaginal hysterectomy SNOMED Code(s): 270592363 ICD Code: Z90.710 - ACQUIRED ABSENCE OF BOTH CERVIX AND UTERUS Status: Acute Current Visit: Yes - Patient Summary/Data Hospital Course: Admitting diagnoses Abdominal pain Nausea vomiting Transaminitis Discharge diagnosis Abdominal pain, likely postoperative improving Nausea vomitingresolved Transaminitisimproving Peri is a 54-year-old female that was admitted status post hysterectomy with abdominal pain and nausea and vomiting. She reports she was discharged and continued to have abdominal pain along with nausea vomiting and the inability to eat at home. Godinez was placed prior to discharge and remained in during admission. Patient was treated with B&O suppository for possible bladder spasms and Godinez was removed. She tolerated this well and abdominal pain significantly improved. She was able to void appropriately per self. She was also treated for anxiety with small dose of Ativan. Today she continues to tolerate her diet and void herself. Abdominal pain is mild and dull in nature likely more postoperative pain. She will be discharged home with oxycodone 5 mg every 6 hours as needed pain 5 tablets no refills. She at this time is refusing to follow-up with Dr. Ferguson for postoperative care. She was scheduled with Dr. Berger. On admission, transaminitis was noted. Abdominal CT showed no significant findings along with right upper quadrant ultrasound. Hepatitis panel is still pending upon discharge. She is to continue to hydrate at home. Along with staying away from any hepatotoxic medications such as Tylenol. She was counseled on this extensively. She will have follow-up with PCP and lab work to evaluate transaminitis. She is to follow-up with [facility] for postoperative care and management. She is to return to the ER or clinic if concerns should arise sooner. - Patient Instructions Diet: Regular Diet as Tolerated Activity: No Strenuous Activities Driving: Do Not Drive Showering/Bathing: May Shower Notify Provider of: Fever, Increased Pain, Swelling and Redness, Drainage, Nausea and/or Vomiting - Discharge Plan *PRESCRIPTION DRUG MONITORING PROGRAM REVIEWED*: Not Applicable *COPY OF PRESCRIPTION DRUG MONITORING REPORT IN PATIENT NATASHA: Not Applicable Prescriptions/Med Rec: Docusate Sodium [Colace] 100 mg PO DAILY #30 cap Ibuprofen 400 mg PO Q6H #1 tablet oxyCODONE 5 mg PO Q6H PRN #5 tablet PRN Reason: Pain Home Medications: Home Meds SUMAtriptan [Imitrex] 65 mg PO ASDIRECTED PRN 03/07/14 [History] Docusate Sodium [Colace] 100 mg PO DAILY #30 cap 01/02/20 [Rx] Ibuprofen 400 mg PO Q6H #1 tablet 01/02/20 [Rx] oxyCODONE 5 mg PO Q6H PRN #5 tablet 01/02/20 [Rx] Oxygen Therapy Mode: Room Air Patient Handouts: Oxycodone tablets or capsules, Ibuprofen tablets and capsules, Abdominal Pain, Adult, [id number], Docusate capsules Referrals: Vicki Quiñonez NP [Nurse Practitioner] - 01/08/20 2:30 pm (Please arrive 15 minutes early with your identification, insurance cards and your own facemask.) Ivet Mann MD [Physician] - 01/08/20 3:30 pm - Discharge Summary/Plan Comment DC Time >30 min.: No - Patient Data Vitals - Most Recent: Last Vital Signs Temp 98.7 F 01/02/20 08:00 Pulse 66 01/02/20 08:00 Resp 16 01/02/20 08:00 BP 101/77 01/02/20 08:00 Pulse Ox 98 01/02/20 08:00 Weight - Most Recent: 61.643 kg I&O - Last 24 hours: Intake & Output 01/01/20 01/02/20 01/02/20 22:59 06:59 14:59 Intake Total 8 2020 Output Total 2500 1150 Balance -422 870 Lab Results - Last 24 hrs: Laboratory Results - last 24 hr 01/01/20 01/02/20 01/02/20 Range/Units 17:24 05:30 05:30 WBC 5.25 (4.0-11.0) K/uL RBC 3.13 L (4.30-5.90) M/uL Hgb 9.5 L (12.0-16.0) g/dL Hct 30.3 L (36.0-46.0) % MCV 96.8 (80.0-98.0) fL MCH 30.4 (27.0-32.0) pg MCHC 31.4 (31.0-37.0) g/dL RDW Std Deviation 51.6 (28.0-62.0) fl RDW Coeff of [place] 15 (11.0-15.0) % Plt Count 188 (150-400) K/uL MPV 10.80 (7.40-12.00) fL Neut % (Auto) 40.0 L (48.0-80.0) % Lymph % (Auto) 42.3 H (16.0-40.0) % [place] % (Auto) 7.2 (0.0-15.0) % Eos % (Auto) 9.9 H (0.0-7.0) % Baso % (Auto) 0.6 (0.0-1.5) % Neut # (Auto) 2.1 (1.4-5.7) K/uL Lymph # (Auto) 2.2 (0.6-2.4) K/uL [place] # (Auto) 0.4 (0.0-0.8) K/uL Eos # (Auto) 0.5 (0.0-0.7) K/uL Baso # (Auto) 0.0 (0.0-0.1) K/uL Nucleated RBC % 0.0 /100WBC Nucleated RBCs # 0 K/uL Sodium 143 (136-145) mmol/L Potassium 3.8 (3.5-5.1) mmol/L Chloride 106 (98-107) mmol/L Carbon Dioxide 29.9 (21.0-32.0) mmol/L BUN 11 (7.0-18.0) mg/dL Creatinine 0.7 (0.6-1.0) mg/dL Est Cr Clr Drug Dosing 78.41 mL/min Estimated GFR (MDRD) > 60.0 ml/min Glucose 100 (74-106) mg/dL POC Glucose 132 H (60-110) mg/dL Calcium 8.6 (8.5-10.1) mg/dL Total Bilirubin 0.2 (0.2-1.0) mg/dL AST 73 H (15-37) IU/L ALT 364 H (14-63) IU/L Alkaline Phosphatase 128 H (46-116) U/L Total Protein 5.4 L (6.4-8.2) g/dL Albumin 2.8 L (3.4-5.0) g/dL Globulin 2.6 (2.6-4.0) g/dL Albumin/Globulin Ratio 1.1 (0.9-1.6) Med Orders - Current: Current Medications Albuterol/Ipratropium (Duoneb 3.0-0.5 Mg/3 Ml) 3 ml NEB Q4HRRT PRN PRN Reason: Shortness Of Breath/wheezing Belladonna Alkaloids/Opium (B & O Supprettes No. 15a) 1 supp RECTAL Q8H PRN PRN Reason: bladder pain Last Admin: 01/02/20 00:06 Dose: 1 supp Documented by: Bisacodyl (Dulcolax) 5 mg PO BID PRN PRN Reason: Constipation Last Admin: 12/31/19 21:24 Dose: 5 mg Documented by: Lactated Ringer's (Ringers, Lactated) 1,000 mls @ 125 mls/hr IV ASDIRECTED [facility] Last Admin: 01/02/20 07:53 Dose: 125 mls/hr Documented by: Pantoprazole Sodium 40 mg/ (Sodium Chloride) 10 mls @ 300 mls/hr IV DAILY [facility] Last Admin: 01/02/20 08:40 Dose: 300 mls/hr Documented by: Ketorolac Tromethamine (Toradol) 30 mg IVPUSH Q6H PRN PRN Reason: Pain Stop: 01/04/20 23:50 Last Admin: 01/01/20 23:32 Dose: 30 mg Documented by: Ondansetron HCl (Zofran) 4 mg IVPUSH Q4H PRN PRN Reason: Nausea/Vomiting Oxycodone HCl (Oxycodone) 5 mg PO Q6H PRN PRN Reason: Pain Last Admin: 01/02/20 07:52 Dose: 5 mg Documented by: Sumatriptan Succinate (Imitrex) 50 mg PO Q2H PRN PRN Reason: Headache/Pain Last Admin: 12/31/19 13:06 Dose: 50 mg Documented by: Discontinued Medications Hydrocodone Bitart/Acetaminophen (Beatty 325-5 Mg) 1 tab PO ONETIME ONE Stop: 12/30/19 19:36 Last Admin: 12/30/19 19:39 Dose: 1 tab Documented by: Hydrocodone Bitart/Acetaminophen (Acetaminophen/Hydrocodone 108-2.5 Mg/5 Ml) 15 ml PO Q4H PRN PRN Reason: Pain Hydrocodone Bitart/Acetaminophen (Acetaminophen/Hydrocodone 108-2.5 Mg/5 Ml) 15 ml PO Q4H PRN PRN Reason: Pain Last Admin: 12/31/19 04:31 Dose: 15 ml Documented by: Belladonna Alkaloids/Opium (B & O Supprettes No. 15a) 1 supp RECTAL ONETIME ONE Stop: 01/01/20 10:20 Last Admin: 01/01/20 11:11 Dose: 1 supp Documented by: Bisacodyl (Dulcolax) 10 mg RECTAL ONETIME ONE Stop: 01/02/20 09:02 Last Admin: 01/02/20 09:59 Dose: 10 mg Documented by: Sodium Chloride (Normal Saline) 1,000 mls @ 999 mls/hr IV STAT ONE Stop: 12/30/19 20:15 Last Admin: 12/30/19 19:30 Dose: 999 mls/hr Documented by: Sodium Chloride (Normal Saline) 1,000 mls @ 999 mls/hr IV .Bolus ONE Stop: 12/31/19 00:13 Last Admin: 12/30/19 23:20 Dose: 999 mls/hr Documented by: Iopamidol (Isovue-370 (76%)) 80 ml IVPUSH ONETIME STA Stop: 12/30/19 20:47 Last Admin: 12/30/19 20:47 Dose: 80 ml Documented by: Lorazepam (Ativan) 0.5 mg PO ONETIME ONE Stop: 01/01/20 10:29 Last Admin: 01/01/20 11:11 Dose: 0.5 mg Documented by: Sumatriptan Succinate (Imitrex) 65 mg PO ASDIRECTED PRN PRN Reason: Headache Tramadol HCl (Ultram) 50 mg PO ONETIME ONE Stop: 01/01/20 01:04 Last Admin: 01/01/20 01:25 Dose: 50 mg Documented by:
[2020-01-02 11:44] VITALS: BP 106/69; PULSE 78
== END 2020-01-02 12:00 | disposition home or self-care (01) ==
LOC: MW.ED 18:04 → MW.MS 23:07
PROVIDERS: ADMIT Student in an Organized Health Care Education/Training Program; ATTEND Student in an Organized Health Care Education/Training Program
DX: K59.00 Constipation, unspecified (principal); R74.01 Elevation of levels of liver transaminase levels; R10.9 Unspecified abdominal pain; F32.9 Major depressive disorder, single episode, unspecified; Z79.899 Other long term (current) drug therapy; Z20.828 Contact with and (suspected) exposure to other viral communicable diseases; Z88.8 Allergy status to other drugs, medicaments and biological substances; Z88.1 Allergy status to other antibiotic agents; Z90.49 Acquired absence of other specified parts of digestive tract; Z87.891 Personal history of nicotine dependence; Z98.891 History of uterine scar from previous surgery; Z90.710 Acquired absence of both cervix and uterus
CPT/HCPCS: 36415; 74177; 76705; 80053; 80074; 80307; 81001; 82150; 82550; 82962; 83605; 83690; 83735; 84100; 85025; 85610; 87635; 99285; A9270; C9113; J1885; J7030; J7120; Q9967; 96360; 96361; 99283; U0002

== ENCOUNTER 2023-11-06 15:13 | Emergency (ER) | payer SELFPAY ==
[2023-11-06] MEDS: HYDROmorphone 0.5 MG/0.5 ML Syringe IVPUSH ONE ×2 (16:44→19:30)
[2023-11-06] MEDS: fentaNYL 100 MCG/2 ML SDV IVPUSH ONE (17:10)
[2023-11-06] MEDS ORDERED: Sodium Chloride 0.9% 1,000 ML IV SCH (18:45)
[2023-11-06] MEDS ORDERED: Naloxone 0.4 MG/ML SDV IVPUSH PRN (19:24)
[2023-11-06] MEDS: Sodium Chloride 0.9% 500 ML IV SCH (19:31)
[2023-11-06 19:58] LABS: BASOPHILS ABSOLUTE AUTO 0.07 K/uL (0.00-0.20); BASOPHILS PERCENT AUTO 0.7 % (0.0-1.0); EOSINOPHILS ABSOLUTE AUTO 0.07 K/uL (0.00-0.45); EOSINOPHILS PERCENT AUTO 0.7 % (0.0-6.0); HEMATOCRIT 34.9 % (37.0-47.0); HEMOGLOBIN 11.2 g/dL (12.0-16.0); IMMATURE GRAN ABSOLUTE AUTO 0.03 K/uL (0.00-0.05); IMMATURE GRAN PERCENT AUTO 0.3 % (0.0-0.4); LYMPHOCYTES ABSOLUTE AUTO 2.88 K/uL (1.00-4.80); LYMPHOCYTES PERCENT AUTO 27.9 % (24.0-44.0); MEAN CORPUSCULAR HEMOGLOBIN 31.2 pg (28.0-32.0); MEAN CORPUSCULAR HGB CONC 32.1 g/dL (32.0-36.0); MEAN CORPUSCULAR VOLUME 97.2 fL (83.0-99.0); MEAN PLATELET VOLUME 10.1 fL (9.4-12.3); MONOCYTES ABSOLUTE AUTO 0.59 K/uL (0.00-0.80); MONOCYTES PERCENT AUTO 5.7 % (0.0-8.0); NEUTROPHILS ABSOLUTE AUTO 6.69 K/uL (1.80-7.70); NEUTROPHILS PERCENT AUTO 64.7 % (41.0-71.0); PLATELET COUNT,PLT 209 K/uL (150-400); RED BLOOD CELL COUNT 3.59 M/uL (4.10-5.30); WHITE BLOOD CELL COUNT,WBC 10.33 K/uL (3.9-11.3)
[2023-11-06 20:04] VITALS: BP 104/68; PULSE 63
[2023-11-06 20:15] LABS: CALCIUM 8.1 mg/dL (8.5-10.1); CARBON DIOXIDE,CO2 28.4 mmol/L (21.0-32.0); CREATININE 0.8 mg/dL (0.6-1.0); EST CRCL DRUG DOSING (CG) 65.38 mL/min; POTASSIUM,K 3.9 mmol/L (3.5-5.1)
== END 2023-11-06 20:10 ==
LOC: MW.ED 15:13
DX: S82.301B Unspecified fracture of lower end of right tibia, initial encounter for open fracture type I or II (principal); Z75.8 Other problems related to medical facilities and other health care; Z88.5 Allergy status to narcotic agent; Z91.018 Allergy to other foods; Z88.8 Allergy status to other drugs, medicaments and biological substances; Z88.0 Allergy status to penicillin; Z91.048 Other nonmedicinal substance allergy status; Z90.49 Acquired absence of other specified parts of digestive tract; W22.8XXA Striking against or struck by other objects, initial encounter; Y93.89 Activity, other specified
CPT/HCPCS: 36415; 73590; 80048; 85025; 96365; 96375; 96376; 99285; J1170; J3010; J3370; J7040; J7050; 99284